=== PATIENT | female | born 1930 | race Caucasian/White ===

== ENCOUNTER 2017-03-01 09:03 | Inpatient (IN) | payer MEDICARE ==
[~2017-03-01] VITALS: Ht 170.2 cm; Wt 68.0 kg
[2017-03-01] MEDS ORDERED: PREDAOS OU (09:18)
[2017-03-01] MEDS ORDERED: MS100DRIP SQ (09:18)
[2017-03-01] MEDS ORDERED: NITR.4 SL (09:18)
[2017-03-01] MEDS ORDERED: INSULIN SQ (09:18)
[2017-03-01] MEDS ORDERED: PRED1 PO (09:18)
[2017-03-01] MEDS ORDERED: ISOS30TA6 PO (09:23)
[2017-03-01] MEDS ORDERED: FLUT16H NASAL (09:23)
[2017-03-01] MEDS ORDERED: INSLAN SQ (09:23)
[2017-03-01] MEDS ORDERED: CARV25 PO (09:23)
[2017-03-01] MEDS ORDERED: FURO40 PO (09:23)
[2017-03-01] MEDS ORDERED: LOSA50TA37 PO (09:23)
[2017-03-01] MEDS ORDERED: AMLO-512 PO (09:23)
[2017-03-01] MEDS ORDERED: KDUR20 PO (09:23)
[2017-03-01] MEDS ORDERED: DIGO125T PO (09:23)
[2017-03-01 10:06] LABS: BASOPHILS # (AUTO) 0.06 K/uL (0.00-0.20); BASOPHILS % (AUTO) 0.8 % (0.0-2.0); EOSINOPHILS # (AUTO) 0.08 K/uL (0.00-0.70); EOSINOPHILS % (AUTO) 1.06 % (1.0-6.0); HEMATOCRIT 41.8 % (36-46); HEMOGLOBIN 13.8 g/dL (12.0-16.0); LYMPHOCYTES # (AUTO) 2.3 K/uL (1.0-4.8); LYMPHOCYTES % (AUTO) 32.5 % (22.0-44.0); MEAN CORPUSCULAR HEMOGLOBIN 25.7 pg (26.0-34.0); MEAN CORPUSCULAR VOLUME 78 fL (80-100); MONOCYTES # (AUTO) 0.4 K/uL (0.1-1.0); MONOCYTES % (AUTO) 4.8 % (2.0-9.0); NEUTROPHILS # (AUTO) 4.4 K/uL (1.8-7.7); NEUTROPHILS % (AUTO) 60.8 % (40.0-70.0); RED BLOOD CELL COUNT(AUTO) 5.36 MIL/uL (4.00-5.20); RED CELL DISTRIBUTION WIDTH 15.8 % (11.5-14.5)
[2017-03-01 10:08] LABS: ANION GAP 14 mmol/L (8-16); CALCIUM, TOTAL 8.3 mg/dL (8.8-10.5); CARBON DIOXIDE 22 mmol/L (22-29); CHLORIDE 102 mmol/L (98-107); CREATININE 1.74 mg/dL (0.60-1.30); GLOMERULAR FILTR. RATE CALC 28 mL/min (>60); GLUCOSE,RANDOM 263 mg/dL (70-110); INR 1.1 (0.9-1.1); POTASSIUM 3.5 mmol/L (3.5-5.1); PROTHROMBIN TIME 11.3 SEC (9.4-11.6); SODIUM SERUM 138 mmol/L (136-145); UREA NITROGEN, BLOOD 28 mg/dL (7-18)
[2017-03-01 10:28] LABS: ABG A-A DIFF O2 193.7 mmHg (10-20.0); ABG BASE EXCESS -4.3 mmol/L (-2.0-3.0); ABG CARBOXYHEMOGLOBIN 1.7 % (0.0-1.5); ABG HCO3 21.2 mmol/L (22.0-26.0); ABG METHEMOGLOBIN 0.4 % (0.0-1.5); ABG OXYGEN CONTENT 18.7 mL/dL (15.0-23.0); ABG OXYGEN SATURATION 98.3 % (95.0-98.0); ABG OXYHEMOGLOBIN 96.2 % (94.0-100.0); ABG PCO2 42 mmHg (35-45); ABG PH 7.332 (7.35-7.450); ABG TOTAL HEMOGLOBIN 13.7 G/dL (12.0-18.0); PO2, ARTERIAL BG 115.2 mmHg (71.0-79.0); SOURCE, BLOOD GAS ARTERIAL; TEMPERATURE, FAHRENHEIT, BG 99.5 FAHREN (96.0-98.6)
[2017-03-01 10:29] LABS: O2 DEVICE,BLOOD GAS BIPAP (ROOM AIR); SITE, BLOOD GAS RT RADIAL
[2017-03-01] MEDS ORDERED: CefTRIAXone 1 GM/DEXTROSE 50 ML IV ONE ×2 (10:30→13:30)
[2017-03-01] MEDS ORDERED: AZITHROMYCIN 500 MG/NS 250 ML IV ONE ×2 (10:30→13:30)
[2017-03-01 10:33] LABS: B-TYPE NATRIURETIC PEPTIDE 2430 pg/mL (0-100)
[2017-03-01 10:34] LABS: ALANINE AMINOTRANSFERASE 61 U/L (12-78); ALBUMIN 2.9 g/dL (3.4-5.0); ALKALINE PHOSPHATASE 141 U/L (46-116); ASPARTATE AMINOTRANSFERASE 50 U/L (15-37); BILIRUBIN,TOTAL 0.7 mg/dL (0.1-1.0); CREATINE KINASE MB 2.5 ng/mL (0-5); CREATINE KINASE, TOTAL 80 U/L (26-192); TOTAL PROTEIN, SERUM 7.5 g/dL (6.4-8.2)
[2017-03-01 10:36] LABS: PLATELET COUNT (AUTO) 231 K/uL (150-450)
[2017-03-01] MEDS ORDERED: FUROSEMIDE 40 MG/4 ML VIAL IVP ONE (10:45)
[2017-03-01] MEDS ORDERED: ACETAMINOPHEN 325 MG TABLET PO PRN ×2 (11:00→13:30)
[2017-03-01] MEDS ORDERED: ONDANSETRON HCL 4 MG/2 ML VIAL IVP PRN ×2 (11:00→13:30)
[2017-03-01 11:36] LABS: APPEARANCE,URINE CLOUDY (CLEAR); BILIRUBIN,URINE NEGATIVE (NEGATIVE); GLUCOSE, URINE (UA) 100 mg/dL (NEGATIVE); KETONES,URINE NEGATIVE (NEGATIVE); LEUKOCYTE ESTERASE ,URINE NEGATIVE (NEGATIVE); NITRATE,URINE NEGATIVE (NEGATIVE); OCCULT BLOOD,URINE TRACE (NEGATIVE); PH,URINE 6.5 (5.0-8.0); PROTEIN,URINE SEE CONFIRM (NEGATIVE)
[2017-03-01 11:47] LABS: INFLUENZA TYPE A NEGATIVE FOR TYPE A (NEGATIVE); INFLUENZA TYPE B NEGATIVE FOR TYPE B (NEGATIVE)
[2017-03-01 11:56] LABS: SULFOSALICYLIC ACID,URINE 3+ (Negative)
[2017-03-01 11:58] LABS: BACTERIA,URINE Few /HPF (None Seen); RBC,URINE 0-2 /HPF (0-2); RENAL EPITHELIAL CELLS,URINE Few /LPF (None Seen); SQUAMOUS EPITHELIAL CELL,UR Few /LPF (None Seen); WBC,URINE 0-2 /HPF (0-5)
[2017-03-01 11:59] LABS: AMORPHOUS SEDIMENT,UR Moderate /LPF (None Seen); COARSE GRANULAR CASTS,URINE 0-2 /LPF (None Seen)
[2017-03-01] MEDS ORDERED: CefTRIAXone 1 GM/DEXTROSE 50 ML IV SCH (12:00)
[2017-03-01] MEDS ORDERED: LORazepam 2 MG/ML VIAL IVP PRN (12:30)
[2017-03-01] MEDS ORDERED: HYDROCODONE/ACETAMINOPHEN 5-325 MG TABLET PO PRN (13:30)
[2017-03-01] MEDS ORDERED: MORPHINE SULFATE 2 MG/ML SYRINGE IVP PRN (13:30)
[2017-03-01] MEDS ORDERED: MAGNESIUM HYDROXIDE SUSPENSION 30 ML UDCUP PO PRN (13:30)
[2017-03-01] MEDS ORDERED: BISACODYL 10 MG RECTAL RECTAL SUPPOSITORY PR PRN (13:30)
[2017-03-01] MEDS ORDERED: ZOLPIDEM TARTRATE 5 MG TABLET PO PRN (13:30)
[2017-03-01] MEDS: PrednisoLONE ACETATE 1% 5 ML OPHTHALMIC SUSPENSION OU SCH ×2 (16:53→23:50)
[2017-03-01] MEDS: HEPARIN SODIUM,PORCINE 5,000 UNITS/ML VIAL SQ SCH ×2 (16:53→23:51)
[2017-03-01 20:11] VITALS: BP 133/100
[2017-03-01] MEDS: FUROSEMIDE 40 MG/4 ML VIAL IVP SCH (23:48)
[2017-03-01] MEDS: DOCUSATE SODIUM 100 MG CAPSULE PO SCH (23:50)
[2017-03-01] MEDS: CARVEDILOL 25 MG TABLET PO SCH (23:50)
[2017-03-02] VITALS (7 sets, daily range): BP systolic 95–146; BP diastolic 55–78
[2017-03-02 07:10] LABS: CALCIUM, TOTAL 8.4 mg/dL (8.8-10.5); CREATININE 1.6 mg/dL (0.60-1.30); POTASSIUM 3.2 mmol/L (3.5-5.1)
[2017-03-02 08:26] LABS: BASOPHILS # (AUTO) 0.03 K/uL (0.00-0.20); BASOPHILS % (AUTO) 0.2 % (0.0-2.0); EOSINOPHILS # (AUTO) 0.03 K/uL (0.00-0.70); EOSINOPHILS % (AUTO) 0.27 % (1.0-6.0); HEMATOCRIT 37.1 % (36-46); HEMOGLOBIN 12.1 g/dL (12.0-16.0); LYMPHOCYTES # (AUTO) 2.7 K/uL (1.0-4.8); LYMPHOCYTES % (AUTO) 25.2 % (22.0-44.0); MEAN CORPUSCULAR HEMOGLOBIN 26.2 pg (26.0-34.0); MEAN CORPUSCULAR HGB CONC 32.5 G/dL (31.0-37.0); MEAN CORPUSCULAR VOLUME 81 fL (80-100); MONOCYTES # (AUTO) 0.7 K/uL (0.1-1.0); MONOCYTES % (AUTO) 6.4 % (2.0-9.0); NEUTROPHILS # (AUTO) 7.2 K/uL (1.8-7.7); NEUTROPHILS % (AUTO) 67.8 % (40.0-70.0); PLATELET COUNT (AUTO) 191 K/uL (150-450); RED CELL DISTRIBUTION WIDTH 16.2 % (11.5-14.5)
[2017-03-02] MEDS: DIGOXIN 125 MCG TABLET PO SCH (09:13)
[2017-03-02] MEDS: AmLODIPine BESYLATE 10 MG TABLET PO SCH (09:13)
[2017-03-02] MEDS: ISOSORBIDE MONONITRATE 30 MG ER TABLET PO SCH (09:13)
[2017-03-02] MEDS: DOCUSATE SODIUM 100 MG CAPSULE PO SCH ×2 (09:14→21:00)
[2017-03-02] MEDS: HEPARIN SODIUM,PORCINE 5,000 UNITS/ML VIAL SQ SCH ×3 (09:14→23:49)
[2017-03-02] MEDS: PANTOPRAZOLE SODIUM 40 MG DR TABLET PO SCH (09:14)
[2017-03-02] MEDS: CARVEDILOL 25 MG TABLET PO SCH ×2 (09:14→21:00)
[2017-03-02] MEDS: LOSARTAN POTASSIUM 50 MG TABLET PO SCH (09:14)
[2017-03-02] MEDS: PrednisoLONE ACETATE 1% 5 ML OPHTHALMIC SUSPENSION OU SCH ×4 (09:15→21:00)
[2017-03-02] MEDS: FLUTICASONE PROPIONATE 50 MCG/SPRAY 16 GM NASAL SPRAY NASAL SCH (09:15)
[2017-03-02] MEDS: FUROSEMIDE 40 MG/4 ML VIAL IVP SCH ×2 (09:15→21:00)
[2017-03-02] MEDS: POTASSIUM CHLORIDE 20 MEQ ER TABLET PO SCH (09:31)
[2017-03-02] MEDS ORDERED: SODIUM CHLORIDE 0.9% 250 ML IV ONE (12:12)
[2017-03-02] MEDS: CefTRIAXone 1 GM/DEXTROSE 50 ML IV SCH (12:31)
[2017-03-02] MEDS: AZITHROMYCIN 500 MG/NS 250 ML IV SCH (12:57)
[2017-03-03 04:53] VITALS: BP 140/86
[2017-03-03 06:34] LABS: BASOPHILS % (AUTO) 0.3 % (0.0-2.0); EOSINOPHILS % (AUTO) 1.4 % (1.0-6.0); HEMATOCRIT 37.5 % (36-46); HEMOGLOBIN 12.6 g/dL (12.0-16.0); LYMPHOCYTES # (AUTO) 2.1 K/uL (1.0-4.8); LYMPHOCYTES % (AUTO) 30.8 % (22.0-44.0); MEAN CORPUSCULAR HEMOGLOBIN 26.2 pg (26.0-34.0); MEAN CORPUSCULAR HGB CONC 33.5 G/dL (31.0-37.0); MEAN CORPUSCULAR VOLUME 78 fL (80-100); MONOCYTES # (AUTO) 0.8 K/uL (0.1-1.0); NEUTROPHILS # (AUTO) 3.9 K/uL (1.8-7.7); NEUTROPHILS % (AUTO) 56.5 % (40.0-70.0); PLATELET COUNT (AUTO) 199 K/uL (150-450); RED CELL DISTRIBUTION WIDTH 16.1 % (11.5-14.5)
[2017-03-03 06:53] LABS: CALCIUM, TOTAL 8.7 mg/dL (8.8-10.5); CREATININE 1.45 mg/dL (0.60-1.30); POTASSIUM 3.6 mmol/L (3.5-5.1)
[2017-03-03 07:20] VITALS: BP 139/81
[2017-03-03] MEDS: FLUTICASONE PROPIONATE 50 MCG/SPRAY 16 GM NASAL SPRAY NASAL SCH (09:15)
[2017-03-03] MEDS: HEPARIN SODIUM,PORCINE 5,000 UNITS/ML VIAL SQ SCH (09:15)
[2017-03-03] MEDS: FUROSEMIDE 40 MG/4 ML VIAL IVP SCH (09:15)
[2017-03-03] MEDS: PrednisoLONE ACETATE 1% 5 ML OPHTHALMIC SUSPENSION OU SCH ×2 (09:15→13:15)
[2017-03-03] MEDS: POTASSIUM CHLORIDE 20 MEQ ER TABLET PO SCH (09:15)
[2017-03-03] MEDS: DOCUSATE SODIUM 100 MG CAPSULE PO SCH (09:15)
[2017-03-03] MEDS: ISOSORBIDE MONONITRATE 30 MG ER TABLET PO SCH (09:15)
[2017-03-03] MEDS: DIGOXIN 125 MCG TABLET PO SCH (09:16)
[2017-03-03] MEDS: CARVEDILOL 25 MG TABLET PO SCH (09:16)
[2017-03-03] MEDS: LOSARTAN POTASSIUM 50 MG TABLET PO SCH (09:16)
[2017-03-03] MEDS: AmLODIPine BESYLATE 10 MG TABLET PO SCH (09:16)
[2017-03-03] MEDS: PANTOPRAZOLE SODIUM 40 MG DR TABLET PO SCH (09:16)
[2017-03-03 11:09] VITALS: BP 133/78
[2017-03-03] MEDS ORDERED: LEVO250 PO (11:21)
[2017-03-03] MEDS: CefTRIAXone 1 GM/DEXTROSE 50 ML IV SCH (12:42)
[2017-03-03] MEDS: AZITHROMYCIN 500 MG/NS 250 ML IV SCH (13:16)
[2017-03-03 15:26] VITALS: BP 111/71
== END 2017-03-03 16:10 | disposition hospice, home (50) | DRG 291 ==
LOC: EMS 09:06 → 5S 18:21
PROVIDERS: ADMIT Internal Medicine; ATTEND Internal Medicine
DX: I11.0 Hypertensive heart disease with heart failure (principal); J96.00 Acute respiratory failure, unspecified whether with hypoxia or hypercapnia; J18.9 Pneumonia, unspecified organism; I42.9 Cardiomyopathy, unspecified; I48.2 Chronic atrial fibrillation; J44.0 Chronic obstructive pulmonary disease with (acute) lower respiratory infection; E11.9 Type 2 diabetes mellitus without complications; J44.9 Chronic obstructive pulmonary disease, unspecified; E78.00 Pure hypercholesterolemia, unspecified; E78.5 Hyperlipidemia, unspecified; I50.41 Acute combined systolic (congestive) and diastolic (congestive) heart failure; F03.90 Unspecified dementia, unspecified severity, without behavioral disturbance, psychotic disturbance, mood disturbance, and anxiety; I25.10 Atherosclerotic heart disease of native coronary artery without angina pectoris; Z95.1 Presence of aortocoronary bypass graft; Z78.1 Physical restraint status
CPT/HCPCS: 51702; 82805; 83605; 87040; 87804; 93005; 94660; 96365; 96367; 96375; 99291; J0456; J0696; J1644; J1940; J2060; J7050